=== PATIENT | female | born 1955 | race Caucasian/White ===

== ENCOUNTER → 2016-08-04 | Outpatient (CLI) | payer BC ==
[2016-08-04 09:25] LABS: Basophils # (A) 0.1 k/uL (0-0.2); Basophils % (A) 1 %; CH 29.7; CHCM 31.8; Eosinophils # (A) 0.1 k/uL (0-0.7); Eosinophils % (A) 1 %; HCT 44.3 % (34.0-46.0); HDW 2.22; HGB 14.5 gm/dL (11.4-16.0); Luc # (Auto) 0.13; Luc % (Auto) 2; Lymphocytes # (A) 2.3 k/uL (1.0-4.8); Lymphocytes % (A) 30 %; MCH 30.6 pg (25.0-35.0); MCHC 32.6 g/dL (31.0-37.0); MCV 93.8 fL (80.0-100.0); Mean Platelet Volume 7.3; Monocytes # (A) 0.3 k/uL (0-1.0); Monocytes % (A) 4 %; Neutrophils # (A) 4.7 k/uL (1.3-7.7); Neutrophils % (A) 62 %; RBC 4.73 m/uL (3.80-5.40); RDW 13.1 % (11.5-15.5); WBC 7.6 k/uL (3.8-10.6); WBC (Perox) 7.97
[2016-08-04 10:19] LABS: Erythrocyte Sedimentation Rate 8 mm/hr (0-20)
== END | disposition home or self-care (01) ==
LOC: LABWHC1 08:42
PROVIDERS: ATTEND Physical Medicine & Rehabilitation
DX: M50.123 Cervical disc disorder at C6-C7 level with radiculopathy (principal); M50.122 Cervical disc disorder at C5-C6 level with radiculopathy; M47.812 Spondylosis without myelopathy or radiculopathy, cervical region; M79.1 Myalgia; R20.2 Paresthesia of skin
CPT/HCPCS: 36415; 85025; 85652; 86140

== ENCOUNTER → 2016-09-07 | Outpatient (CLI) | payer BC ==
--- NOTE | 2016-09-07 08:58 | US ---
EXAMINATION TYPE: US abdomen complete DATE OF EXAM: 09/07/2016 8:40 AM COMPARISON: NONE CLINICAL HISTORY: R10.13 EPIGASTRIC PAIN. Midline pain EXAM MEASUREMENTS: Liver Length: 14.6 cm Gallbladder Wall: 0.2 cm CBD: 0.4 cm Spleen: 9.4 cm Right Kidney: 10.0 x 4.5 x 4.7 cm Left Kidney: 10.3 x 5.4 x 5.7 cm Pancreas: head not well seen due to overlying bowel gas Liver: wnl Gallbladder: multiple mobile stones Evidence for sonographic Caro's sign: neg CBD: wnl Spleen: wnl Right Kidney: wnl Left Kidney: wnl Upper IVC: seen Abd Aorta: seen Limited views of the pancreas are unremarkable. The liver is normal in size without biliary dilatation. There are multiple gallstones within the gallbladder. The gallbladder wall measures 2 mm. Distal comm on hepatic duct measures 4 mm. The spleen is normal in size. Both kidneys are normal. Visualized portions of aorta and IVC are normal. IMPRESSION: CHOLELITHIASIS.
== END | disposition home or self-care (01) ==
LOC: RADUSWWP 08:17
PROVIDERS: ATTEND Family Medicine
DX: K80.20 Calculus of gallbladder without cholecystitis without obstruction (principal)
CPT/HCPCS: 76700

== ENCOUNTER → 2016-11-02 | Outpatient (CLI) | payer BC ==
[2016-11-02 16:28] LABS: Bilirubin, Delta 0.1 mg/dL (0.0-0.2); Total Bilirubin 0.3 mg/dL (0.2-1.3); Total Protein 6.6 g/dL (6.3-8.2)
== END | disposition home or self-care (01) ==
LOC: LABWHC1 15:32
PROVIDERS: ATTEND Surgery
DX: K80.20 Calculus of gallbladder without cholecystitis without obstruction (principal)
CPT/HCPCS: 36415; 80076; 82150; 83690

== ENCOUNTER 2016-11-03 07:57 | Day surgery (SDC) | payer BC ==
[2016-10-28 14:44] VITALS: BMI 26.5
[~2016-11-03 07:57] MED LIST: CLINDAMYCIN 900 MG in DEXTROSE 5% IN WATER 50 ML IVPB ONE; DEXAMETHASONE SOD PHOSPHATE 10 MG/ML 1 ML VIAL IV ONE; HEPARIN SODIUM,PORCINE 5,000 UNIT/ML 1 ML VIAL SQ ONE; ONDANSETRON 4 MG/2 ML VIAL IVP ONE
[2016-11-03] MEDS ORDERED: LIDOCAINE 1% 20 ML VIAL (10MG/ML) FOR IV START INTRADERMA ONE (08:33)
[2016-11-03] MEDS: LACTATED RINGERS 1,000 ML IV SCH ×2 (08:33→11:36)
[2016-11-03 09:38] LABS: Basophils % (A) 0 %; CHCM 32.9; Eosinophils # (A) 0.1 k/uL (0-0.7); Eosinophils % (A) 2 %; HCT 43.4 % (34.0-46.0); HDW 2.22; HGB 13.9 gm/dL (11.4-16.0); Luc # (Auto) 0.08; Luc % (Auto) 2; Lymphocytes # (A) 2.1 k/uL (1.0-4.8); Lymphocytes % (A) 42 %; MCH 29.5 pg (25.0-35.0); MCHC 32.1 g/dL (31.0-37.0); MCV 91.8 fL (80.0-100.0); Mean Platelet Volume 7.2; Monocytes # (A) 0.3 k/uL (0-1.0); Monocytes % (A) 6 %; Neutrophils # (A) 2.4 k/uL (1.3-7.7); Neutrophils % (A) 48 %; RBC 4.73 m/uL (3.80-5.40); WBC (Perox) 4.83
[2016-11-03 09:56] LABS: Amylase 95 U/L (30-110)
[2016-11-03] MEDS ORDERED: HEPARIN SODIUM,PORCINE 5,000 UNIT/ML 1 ML VIAL SQ ONE (11:26)
--- NOTE | 2016-11-03 11:26 | P.PN ---
Progress Note - Text Patient is a 60-year-old white female who by history has had multiple recurrent episodes of midepigastric and right upper quadrant discomfort. Laboratory studies from yesterday revealed that she did have an elevated lipase, normal liver function studies. On today's repeat study shows that this number is 474 which is decreasing. Patient has minimal discomfort midepigastric by history on today's examination. I have discussed with her that she most likely had an episode of gallstone pancreatitis which is largely resolved at this point and that we should be able to proceed with operative intervention. She understands the risks of the procedure including bleeding and infection reaction to the anesthetic, possible common bile duct injury, possible conversion to an open procedure and wishes to proceed.
[2016-11-03] MEDS ORDERED: LIDOCAINE 1% INJ 10MG/ML (20 ML MDV) ONE (11:39)
[2016-11-03] MEDS ORDERED: ROCURONIUM BROMIDE 10 MG/ML 10 ML VIAL IV ONE (11:39)
[2016-11-03] MEDS ORDERED: NEOSTIGMINE 1 MG/ML 10 ML VIAL ONE (11:39)
[2016-11-03] MEDS ORDERED: SUCCINYLCHOLINE CHLORIDE 100 MG/5 ML SYR IV ONE (11:39)
[2016-11-03] MEDS ORDERED: GLYCOPYRROLATE 0.2 MG/ML 2 ML VIAL ONE (11:39)
[2016-11-03] MEDS ORDERED: ePHEDrine 50 MG/ML 1 ML AMP ONE (11:39)
[2016-11-03] MEDS ORDERED: fentaNYL (PF) 50 MCG/ML 2 ML AMP ONE (11:39)
[2016-11-03] MEDS ORDERED: MIDAZOLAM 2 MG/2 ML VIAL ONE (11:39)
[2016-11-03] MEDS ORDERED: PROPOFOL 10 MG/ML 20 ML VIAL IV ONE (11:39)
[2016-11-03] MEDS ORDERED: LIDOCAINE 1% INJ 10MG/ML (20 ML MDV) SQ ONE ×2 (12:15)
--- NOTE | 2016-11-03 13:10 | P.OP ---
Date of Procedure: 11/03/16 Preoperative Diagnosis: Symptomatic cholelithiasis/prior pancreatitis Postoperative Diagnosis: Same Procedure(s) Performed: Laparoscopic cholecystectomy Implants: Anesthesia: SAE Surgeon: Didi Mcdonnell Supervisor [employer] Testing #1: Rosaura Banks Estimated Blood Loss (ml): 5 IV fluids (ml): 800 Pathology: other (gallbladder) Condition: stable Disposition: PACU Indications for Procedure: Symptomatic cholelithiasis with bouts of pancreatitis Operative Findings: Distended gallbladder/cholelithiasis Description of Procedure: Patient is a 60-year-old white female is had multiple bouts of midepigastric and right upper quadrant abdominal discomfort. Most recently she was noted to have an elevated lipase which has decreased over the past 24 hours. She is going to undergo laparoscopic possible open cholecystectomy. She understands the risks and benefits of the procedure and wishes to proceed. Patient was taken to the operating room and following induction of general anesthesia the abdomen was prepped and draped in a sterile fashion. An infraumbilical incision was made and carried down to the fascia the anterior abdominal wall. The peritoneal cavity was entered under direct visualization. 2 stay sutures were placed. A balloon trocar was placed under direct visualization. The abdomen was insufflated to 15 mmHg pressure. Two number 5 ports were placed in the right side of the abdomen through which the gallbladder was retracted and a #10 port was placed in the left upper quadrant. Through the # 10 port dissection was performed. The cystic duct and cystic artery were identified. These were stapled and divided. The gallbladder was retracted and removed from the surface of the liver bed being careful to maintain hemostasis using the electrocautery device. Following this the gallbladder was placed in a Pleatman sac and brought up through the #10 port site. At this time the abdomen was well irrigated there was no evidence of any bleeding. The #10 port site was closed using a Terrence Rodas device. No evidence of bleeding was noted at this site. The 2 #5 ports were removed under direct visualization no evidence of bleeding was noted. Following this after the abdomen had been well irrigated the balloon trocar was removed. The fascia was closed using 0 Vicryl suture. This was followed by closure of the skin with a 4 Monocryl. Steri-Strips applied. The patient tolerated the procedure in stable condition.
--- NOTE | 2016-11-03 13:13 | P.DS ---
Providers Attending physician: Didi Mcdonnell Primary care physician: Gregory Moreno Plan - Discharge Summary New Discharge Prescriptions: New HYDROcodone/APAP 5-325MG [[place] 5] 1 - 2 each PO Q4H PRN #20 tab PRN Reason: Pain No Action Multivitamins, Thera [Multivitamin (formulary)] 1 tab PO DAILY Lysine [l-Lysine] 500 mg PO DAILY Atenolol [Tenormin] 25 mg PO DAILY Discharge Medication List Atenolol [Tenormin] 25 mg PO DAILY 10/28/16 [History] Lysine [l-Lysine] 500 mg PO DAILY 10/28/16 [History] Multivitamins, Thera [Multivitamin (formulary)] 1 tab PO DAILY 10/28/16 [History ] HYDROcodone/APAP 5-325MG [Brent[place] 5] 1 - 2 each PO Q4H PRN #20 tab 11/03/16 [Rx] Follow up Appointment(s)/Referral(s): Didi Mcdonnell MD [STAFF PHYSICIAN] - 1 Week Activity/Diet/Wound Care/Special Instructions: Do not drive until seen by Dr. Moreno Patient may shower in 48 hours. No heavy lifting nothing over 10 pounds Discharge Disposition: HOME SELF-CARE
[2016-11-03 13:47] VITALS: TEMP 97.8
[2016-11-03 13:48] VITALS: RESP 16
[2016-11-03] MEDS: HYDROmorphone 1 MG/ML 1 ML SYRINGE IVP PRN ×4 (14:14→14:36)
[2016-11-03] MEDS ORDERED: LACTATED RINGERS 1,000 ML IV ONE (14:45)
[2016-11-03] MEDS ORDERED: KETOROLAC 30 MG/ML 1 ML VIAL IVP ONE (15:18)
[2016-11-03 18:20] VITALS: BP 135/75
[2016-11-03 18:21] VITALS: PULSE 60
== END 2016-11-03 18:08 | disposition home or self-care (01) ==
LOC: OR 07:57
PROVIDERS: ATTEND Surgery
DX: K80.10 Calculus of gallbladder with chronic cholecystitis without obstruction (principal); M19.90 Unspecified osteoarthritis, unspecified site; Z88.0 Allergy status to penicillin; Z79.899 Other long term (current) drug therapy; Z86.79 Personal history of other diseases of the circulatory system; Z90.710 Acquired absence of both cervix and uterus
CPT/HCPCS: 47562; 88304; 82150; 83690; 85025; J2250; J1644; J1100; J2710; J2405; J2001; J3010; J1885; J1170; J0330; J2704

== ENCOUNTER → 2017-01-21 | Outpatient (CLI) | payer BC ==
--- NOTE | 2017-01-25 11:34 | MM ---
Reason for exam: screening (asymptomatic). Last mammogram was performed 1 year ago. History: Patient is postmenopausal. Took estrogen beginning at age 53. Took progesterone beginning at age 53. Physical Findings: A clinical breast exam by your physician is recommended on an annual basis and results should be correlated with mammographic findings. MG 3D Screening Mammo W/Cad Bilateral CC and MLO view(s) were taken. Prior study comparison: January 13, 2016, bilateral MG 3d screening mammo w/cad. January 09, 2015, bilateral MG screening mammo w CAD. The breast tissue is heterogeneously dense. This may lower the sensitivity of mammography. Finding: There are typically benign vascular calcifications in both breasts. There is no discrete abnormality. ASSESSMENT: Benign, BI-RAD 2 RECOMMENDATION: Routine screening mammogram of both breasts in 1 year.
== END | disposition home or self-care (01) ==
LOC: RADMAMWWP 07:20
PROVIDERS: ATTEND Family Medicine
DX: Z12.31 Encounter for screening mammogram for malignant neoplasm of breast (principal)
CPT/HCPCS: 77063; G0202

== ENCOUNTER 2017-03-05 08:50 | Inpatient (IN) | payer BC ==
[2017-03-05] MEDS ORDERED: NALOXONE 0.4 MG/ML 1 ML VIAL IV PRN (11:09)
[2017-03-05 12:12] LABS: Basophils # (A) 0.1 k/uL (0-0.2); Basophils % (A) 1 %; CH 29.7; CHCM 32.1; Eosinophils # (A) 0.1 k/uL (0-0.7); Eosinophils % (A) 1 %; HDW 2.29; HGB 14.5 gm/dL (11.4-16.0); Luc # (Auto) 0.17; Luc % (Auto) 2; Lymphocytes # (A) 3.4 k/uL (1.0-4.8); Lymphocytes % (A) 44 %; MCH 29.9 pg (25.0-35.0); MCHC 32.2 g/dL (31.0-37.0); MCV 92.9 fL (80.0-100.0); Mean Platelet Volume 6.9; Monocytes # (A) 0.4 k/uL (0-1.0); Monocytes % (A) 6 %; Neutrophils # (A) 3.5 k/uL (1.3-7.7); Neutrophils % (A) 46 %; RBC 4.85 m/uL (3.80-5.40); RDW 12.7 % (11.5-15.5); WBC 7.7 k/uL (3.8-10.6); WBC (Perox) 7.46
[2017-03-05 12:30] LABS: ALT 57 U/L (9-52); AST 27 U/L (14-36); Alkaline Phosphatase 131 U/L (38-126); Anion Gap 12 mmol/L; Blood Urea Nitrogen 14 mg/dL (7-17); Calcium 9.8 mg/dL (8.4-10.2); Carbon Dioxide 23 mmol/L (22-30); Chloride 108 mmol/L (98-107); Glucose 73 mg/dL (74-99); Non-African American GFR(MDRD) >60 (>60 ml/min/1.73 sqM); Potassium 4.2 mmol/L (3.5-5.1); Sodium 143 mmol/L (137-145); Total Bilirubin 0.2 mg/dL (0.2-1.3); Total Protein 7.3 g/dL (6.3-8.2)
[2017-03-05 12:56] LABS: Amylase 116 U/L (30-110)
[2017-03-05] MEDS: PANTOPRAZOLE 40 MG/10 ML VIAL IVP SCH ×2 (13:05→20:12)
[2017-03-05 14:14] VITALS: BMI 25.6
--- NOTE | 2017-03-05 14:42 | US ---
EXAMINATION TYPE: US gallbladder DATE OF EXAM: 03/05/2017 COMPARISON: US 2017 CLINICAL HISTORY: elevated liver enzymes. Elevated liver enzymes, history of cholecystectomy EXAM MEASUREMENTS: Liver Length: 12.8 cm Gallbladder Wall: surgically absent CBD: 0.8 cm Right Kidney: 9.1 x 4.6 x 4.4 cm Pancreas: visualized portions wnl, head and tail obscured by overlying midline bowel gas Liver: wnl Gallbladder: surgically absent Evidence for sonographic Caro's sign: no CBD: visualized portions wnl, obscured at panc head by overlying midline bowel gas Right Kidney: wnl and there is normal cortical medullary differentiation, no hydronephrosis or patho logic calcification. There is no ascites. IMPRESSION: Status post cholecystectomy. Limited exam. Dilated common bile duct may be due to postcho lecystectomy change.
--- NOTE | 2017-03-05 15:43 | P.HPIM ---
History of Present Illness 61-year-old female was admitted as a direct admit as per request from Dr. Moreno' s office because of her on and off abdominal pain in the epigastric area not related to food mostly sharp in nature mostly like a burning sensation. Patient had cholecystectomy in the past. Patient also had minimally elevated liver enzymes as today because of which there was a concern about choledocholithiasis.ultrasound that did not show any significant elevation of common bile duct it was minimally dilated at 0.8 cm there is a concern that lipase is elevated but not high enough to attribute as pancreatitis patient the pain is mostly localized in the epigastric area patient will be started on Prilosec and either was requested to consult gastroenterology because of which I 'm counseling gastroenterology. I believe patient has gastritis will put him put her on Protonix and if she is doing well patient probably will be discharged tomorrow. Patient denied any fever, chills, patient is presently nauseous did not vomit. Patient denied any abdominal pain presently. Does have minimally elevated amylase and lipase. Liver enzymes have come down. Review of Systems REVIEW OF SYSTEMS: CONSTITUTIONAL: No fever, no malaise, no fatigue. HEENT: No recent visual problems or hearing problems. Denied any sore throat. CARDIOVASCULAR: No chest pain, orthopnea, PND, no palpitations, no syncope. PULMONARY: No shortness of breath, no cough, no hemoptysis. GASTROINTESTINAL: No diarrhea. NEUROLOGICAL: No headaches, no weakness, no numbness. HEMATOLOGICAL: Denies any bleeding or petechiae. GENITOURINARY: Denies any burning micturition, frequency, or urgency. MUSCULOSKELETAL/RHEUMATOLOGICAL: Denies any joint pain, swelling, or any muscle pain. ENDOCRINE: Denies any polyuria or polydipsia. The rest of the 14-point review of systems is negative. Past Medical History Past Medical History: Osteoarthritis (OA) Additional Past Medical History / Comment(s): Gallstones with lap landy, nephrolithiasis-passed stone on her own, arthritis multiple joints, mitral valve regurgitaion. History of Any Multi-Drug Resistant Organisms: None Reported Past Surgical History: Section, Cholecystectomy, Hysterectomy, Tonsillectomy Additional Past Surgical History / Comment(s): 11/03/16 lap landy, 1980 hysterectomy d/t dysfunctional bleeding, 2008 ovarian cysts bilaterally- bilateral oophorectomy and lysis of adhesions, multiple bening skin biopsies, D& C, colonoscopy-09/2016 and was normal Past Anesthesia/Blood Transfusion Reactions: Postoperative Nausea & Vomiting ( PONV) Smoking Status: Never smoker - Past Family History Mother Family Medical History: Dementia, Diabetes Mellitus Additional Family Medical History / Comment(s): Mother is 83 yrs old. Father Family Medical History: Cancer, Hypertension Additional Family Medical History / Comment(s): Father had mitral valve replacement. He of malignant melanoma at the age of 68yrs. Medications and Allergies Home Medications Medication Instructions Recorded Confirmed Type Atenolol [Tenormin] 25 mg PO DAILY 10/28/16 03/05/17 History Multivitamins, Thera [Multivitamin 1 tab PO DAILY 10/28/16 03/05/17 History (formulary)] Allergies Allergy/AdvReac Type Severity Reaction Status Date / Time Penicillins Allergy Rash/Hives/ Verified 03/05/17 10:31 swelling Physical Exam Vitals: Vital Signs Temp Pulse Resp BP Pulse Ox 03/05/17 15:09 97.6 F 73 15 125/62 99 Intake and Output 03/05/17 03/05/17 03/05/17 06:59 14:59 22:59 Intake Total 200 Balance 200 Intake: IV 200 0.9 200 Other: Voiding Method Toilet # Voids 3 Weight 63.6 kg Patient Weight 03/06/17 06:59 Weight 63.6 kg PHYSICAL EXAMINATION: GENERAL: The patient is alert and oriented x3, not in any acute distress. Well developed, well nourished. HEENT: Pupils are round and equally reacting to light. EOMI. No scleral icterus. No conjunctival pallor. Normocephalic, atraumatic. No pharyngeal erythema. No thyromegaly. CARDIOVASCULAR: S1 and S2 present. No murmurs, rubs, or gallops. PULMONARY: Chest is clear to auscultation, no wheezing or crackles. ABDOMEN: Soft, nontender, nondistended, normoactive bowel sounds. No palpable organomegaly. MUSCULOSKELETAL: No joint swelling or deformity. EXTREMITIES: No cyanosis, clubbing, or pedal edema. NEUROLOGICAL: Gross neurological examination did not reveal any focal deficits. SKIN: No rashes. Results CBC & Chem 7: 03/05/17 11:43 11/17/17 11:43 Labs: Abnormal Lab Results - Last 24 Hours (Table) 03/05/17 03/05/17 Range/Units 11:43 11:43 Chloride 108 H (98-107) mmol/L Glucose 73 L (74-99) mg/dL ALT 57 H (9-52) U/L Alkaline Phosphatase 131 H (38-126) U/L Amylase 116 H (30-110) U/L Lipase 565 H (23-300) U/L Thrombosis Risk Factor Assmnt - Choose All That Apply Any of the Below Risk Factors Present?: Yes Other Risk Factors: Yes Each Risk Factor Represents 2 Points: Age 61-74 years Other congenital or acquired thrombophilia - If yes, enter type in comment: No Thrombosis Risk Factor Assessment Total Risk Factor Score: 2 Thrombosis Risk Factor Assessment Level: Low Risk Assessment and Plan Plan: #1 epigastric abdominal pain: Probably due to gastritis versus patient is low that patient patient has been hepatitis lipase is not had of to say pancreatitis. Patient was started on clear liquid diet patient has minimal epigastric abdominal pain yesterday which completely resolved at this point of time. #2 minimal elevation of liver enzymes him a nonspecific elevation no further intervention is the city hepatitis panel as outpatient was negative. OF THE ABDOMEN MENTIONED ABOVE. #3 OSTEOARTHRITIS PER THE REQUEST OF THE PRIMARY CARE PHYSICIAN AND THE PATIENT GASTRONEUROLOGY WAS WILL BE CONSULTED BUT I DO NOT BELIEVE ANY FURTHER INTERVENTION IS NECESSARY AT THIS POINT OF TIME PATIENT'S IMPROVED WITH THE PROTONIX PATIENT WILL BE DISCHARGED ON PRILOSEC FOR 14 DAYS TO A MONTH.
[2017-03-05] MEDS: SODIUM CHLORIDE 0.9% 1,000 ML IV SCH (17:26)
[2017-03-06 08:00] LABS: ALT 51 U/L (9-52); AST 24 U/L (14-36); Alkaline Phosphatase 115 U/L (38-126); Anion Gap 5 mmol/L; Blood Urea Nitrogen 11 mg/dL (7-17); Calcium 8.8 mg/dL (8.4-10.2); Carbon Dioxide 24 mmol/L (22-30); Chloride 108 mmol/L (98-107); Glucose 90 mg/dL (74-99); Non-African American GFR(MDRD) >60 (>60 ml/min/1.73 sqM); Potassium 4.3 mmol/L (3.5-5.1); Sodium 137 mmol/L (137-145); Total Bilirubin 0.4 mg/dL (0.2-1.3); Total Protein 5.7 g/dL (6.3-8.2)
[2017-03-06 08:29] VITALS: BP 111/44; PULSE 72; RESP 18; TEMP 97.4
[2017-03-06] MEDS ORDERED: ATENOLOL 25 MG TAB PO SCH (09:00)
[2017-03-06] MEDS ORDERED: MULTIVITAMINS, THERA 1 EACH TAB PO SCH (09:00)
[2017-03-06] MEDS: PANTOPRAZOLE 40 MG/10 ML VIAL IVP SCH (09:26)
[2017-03-06] MEDS: SODIUM CHLORIDE 0.9% 1,000 ML IV SCH (09:47)
== END 2017-03-06 10:09 | disposition home or self-care (01) | DRG 392 ==
LOC: 5MS5E 09:00
PROVIDERS: ADMIT Internal Medicine; ATTEND Internal Medicine
DX: K29.70 Gastritis, unspecified, without bleeding (principal); I34.0 Nonrheumatic mitral (valve) insufficiency; M19.90 Unspecified osteoarthritis, unspecified site; Z87.442 Personal history of urinary calculi; Z80.8 Family history of malignant neoplasm of other organs or systems; Z79.899 Other long term (current) drug therapy; Z82.49 Family history of ischemic heart disease and other diseases of the circulatory system; Z83.3 Family history of diabetes mellitus; Z90.710 Acquired absence of both cervix and uterus; Z88.0 Allergy status to penicillin; Z81.8 Family history of other mental and behavioral disorders; Z90.49 Acquired absence of other specified parts of digestive tract
CPT/HCPCS: 76705; 80053; 82150; 83690; 85025

== ENCOUNTER → 2017-03-09 | Outpatient (CLI) | payer BC ==
--- NOTE | 2017-03-10 11:32 | ECHOS ---
STRESS ECHOCARDIOGRAM DATE OF SERVICE: 03/09/2017 MEDICATIONS:: Atenolol. BASELINE HEART RATE: 82 BASELINE BLOOD PRESSURE: 120/45 MAXIMUM HEART RATE: 158 MAXIMUM BLOOD PRESSURE: 174/81 85% MPHR: 135 100% MPHR: 159 METS: 8.5 MAXIMUM STAGE REACHED: III TOTAL EXERCISE TIME: 7 minutes INDICATIONS: Chest pain and palpitations. CLINICAL INFORMATION: Patient was exercised for a total area of 7 minutes. A peak heart rate of 158 was achieved. Maximum blood pressure of 174/81 mmHg was noted. The resting EKG shows normal sinus rhythm with normal SD interval and QRS duration and normal ST-T waves. No ST-segment depression suggestive of ischemia was noted. No dysrhythmias are noted. FINAL IMPRESSION: This exercise stress test is not suggestive of ischemia. Patient's exercise tolerance is average. EKG portion of the stress test is not suggestive of ischemia. MMRONNI / ISAACN: [id number] /
== END | disposition home or self-care (01) ==
LOC: RADNMMAIN 08:57
PROVIDERS: ATTEND Family Medicine
DX: R00.2 Palpitations (principal); R07.9 Chest pain, unspecified; R94.5 Abnormal results of liver function studies; Z88.0 Allergy status to penicillin
CPT/HCPCS: 93017; 93225; 93226; 93350

== ENCOUNTER → 2017-04-16 | Outpatient (CLI) | payer BC ==
--- NOTE | 2017-04-16 14:30 | MR ---
MRCP HISTORY: Epigastric pain Multiplanar multisequence imaging through the biliary system, three-dimensional reconstructions perfo rmed. Correlation to ultrasound gallbladder 03/05/2017 Gallbladder is absent. There is dilation of the common bile duct approximately 9 mm, some prominence of the proper left and right hepatic ducts, common hepatic duct. There is some motion on the exam. No evident filling defect within the biliary system. Slight caliber change is noted at the level of the change in course of the common bile duct which is indeterminate. Cystic duct remnant noted incidenta lly. Pancreatic duct shows normal caliber. Suspect some signal drop on out of phase imaging within the liver may be indicative of some hepatic s teatosis. The adrenal gland, kidneys, spleen, gallbladder are unremarkable. There is no ascites or ev ident pleural effusion. Heart size is normal as visualized. IMPRESSION: Postcholecystectomy. Dilated biliary system as noted on ultrasound, there is a caliber ch shiloh noted without definite mass, possible postoperative appearance, consider biliary stasis. CT scan of the abdomen with contrast may be of benefit. Additional findings above.
== END | disposition home or self-care (01) ==
LOC: RADMRIMAIN 09:32
PROVIDERS: ATTEND Internal Medicine Gastroenterology
DX: R10.13 Epigastric pain (principal); Z90.49 Acquired absence of other specified parts of digestive tract
CPT/HCPCS: 74181

== ENCOUNTER → 2017-09-20 | Outpatient (CLI) | payer BC ==
--- NOTE | 2017-09-21 08:13 | US ---
EXAMINATION TYPE: US renals and bladder DATE OF EXAM: 09/20/2017 COMPARISON: US CLINICAL HISTORY: N39.0 Urinary tract infection. EXAM MEASUREMENTS: Right Kidney: 9.4 x 4.5 x 5.3 cm Left Kidney: 10.7 x 5.5 x 5.4 cm Post Void Residual Volume: 17.4 mL Right Kidney: No hydronephrosis or masses seen Left Kidney: No hydronephrosis or masses seen Bladder: wnl Bilateral Jets seen: Yes Normal Post Void Residual: yes There is no evidence for hydronephrosis at this point in time. No nephrolithiasis is seen. No sohan s are identified. The urinary bladder is anechoic. Bilateral ureteral jets are seen. IMPRESSION: No acute process.
== END | disposition home or self-care (01) ==
LOC: RADUSMAIN 17:44
PROVIDERS: ATTEND Family Medicine
DX: N39.0 Urinary tract infection, site not specified (principal); Z88.0 Allergy status to penicillin
CPT/HCPCS: 76770

== ENCOUNTER → 2018-01-26 | Outpatient (CLI) | payer BC ==
--- NOTE | 2018-01-26 10:01 | MM ---
Reason for exam: screening (asymptomatic). Last mammogram was performed 1 year ago. History: Patient is postmenopausal. Took estrogen beginning at age 53. Took progesterone beginning at age 53. Physical Findings: A clinical breast exam by your physician is recommended on an annual basis and results should be correlated with mammographic findings. MG 3D Screening Mammo W/Cad Bilateral CC and MLO view(s) were taken. Prior study comparison: January 21, 2017, bilateral MG 3d screening mammo w/cad. January 13, 2016, bilateral MG 3d screening mammo w/cad. The breast tissue is heterogeneously dense. This may lower the sensitivity of mammography. No suspicious abnormality. No significant changes when compared with prior studies. ASSESSMENT: Negative, BI-RAD 1 RECOMMENDATION: Routine screening mammogram of both breasts in 1 year.
== END | disposition home or self-care (01) ==
LOC: RADMAMWWP 07:22
PROVIDERS: ATTEND Family Medicine
DX: Z12.31 Encounter for screening mammogram for malignant neoplasm of breast (principal)
CPT/HCPCS: 77063; 77067

== ENCOUNTER → 2019-02-24 | Outpatient (CLI) | payer BC ==
--- NOTE | 2019-02-24 10:02 | BD ---
EXAMINATION TYPE: Axial Bone Density DATE OF EXAM: 02/24/2019 COMPARISON: 2016 CLINICAL HISTORY: Z 78.0 Height: 5 FT 2 IN Weight: 144 FRAX RISK QUESTIONS: RISK FACTORS HISTORY OF: Family History of Osteoporosis: YES Postmenopausal woman: PART BRIANNA AGE 25 OVARIES REMOVED AGE 53 Take estrogen and/or progesterone medications: TOOK HRT FROM [age] NO LONGER TAKES MEDICATIONS: Additional Medications: ATTENOLOL, VALTREX NEEDED Additional History: EXAM MEASUREMENTS: Bone mineral densitometry was performed using the Pet[employer]DE System. Bone mineral density as measured about the Lumbar spine is: ----- L1-L4(G/cm2): 1.136 T Score Values are as follows: ----- L2: -0.6 ----- L3: -0.5 ----- L4: -0.2 ----- L1-L4: -0.4 Bone mineral density has: DECREASED -8.6 % since study of: 2016 Bone mineral density about the R hip (g/cm2): 0.752 Bone mineral density about the L hip (g/cm2): 0.752 T Score values are as follows: -----R Neck: -2.1 -----L Neck: -2.1 -----R Total: -1.4 -----L Total: -1.5 Bone mineral density has: DECREASED -8.6 % since study of: 2016 IMPRESSION: Osteopenia (T Score between -2.5 and -1). There is slightly increased risk of fracture and the patient may be considered for treatment. Re-Screen 2-5 years. NOTE: T-SCORE=SD OF THE YOUNG ADULT MEAN.
--- NOTE | 2019-02-27 10:42 | MM ---
Reason for exam: screening (asymptomatic). Last mammogram was performed 1 year and 1 month ago. History: Patient is postmenopausal. Took estrogen beginning at age 53. Took progesterone beginning at age 53. Physical Findings: A clinical breast exam by your physician is recommended on an annual basis and results should be correlated with mammographic findings. MG 3D Screening Mammo W/Cad Bilateral CC and MLO view(s) were taken. Prior study comparison: January 26, 2018, bilateral MG 3d screening mammo w/cad. January 21, 2017, bilateral MG 3d screening mammo w/cad. The breast tissue is heterogeneously dense. This may lower the sensitivity of mammography. No significant changes when compared with prior studies. ASSESSMENT: Negative, BI-RAD 1 RECOMMENDATION: Routine screening mammogram of both breasts in 1 year.
== END | disposition home or self-care (01) ==
LOC: RADMAMWWP 06:56
PROVIDERS: ATTEND Family Medicine
DX: Z12.31 Encounter for screening mammogram for malignant neoplasm of breast (principal); M85.80 Other specified disorders of bone density and structure, unspecified site; Z78.0 Asymptomatic menopausal state
CPT/HCPCS: 77063; 77067; 77080

== ENCOUNTER → 2019-03-13 | Outpatient (CLI) | payer BC ==
--- NOTE | 2019-03-14 07:48 | XR ---
Bilateral hips HISTORY: Osteoarthritis, chronic pain 2 views of each hip submitted on a total 4 images Bone mineralization, joint spaces and alignment are maintained. Surgical clip overlying the left iliu m. Probable phlebolith in the right hemipelvis. IMPRESSION: Normal hips. Hip MRI may be of increased sensitivity.
--- NOTE | 2019-03-14 07:50 | XR ---
Bilateral feet HISTORY: Osteoarthritis 3 views of each foot submitted on a total of 6 images Bone mineralization, joint spaces and alignment are maintained with exception of mild degenerative ch anges at the first metatarsophalangeal joint bilaterally. Enthesophyte present at the insertion of th e Achilles tendons. No fracture or dislocation. IMPRESSION: Osteoarthritis first digits and additional findings above.
--- NOTE | 2019-03-14 07:52 | XR ---
Bilateral hands HISTORY: Chronic pain, osteoarthritis 3 views of each hand submitted on a total 6 images There is some spurring, subchondral sclerosis present at the carpometacarpal joints of the first digi ts, metacarpophalangeal joints of the first digits. No fracture or dislocation. Bone mineralization a nd alignment are maintained. IMPRESSION: Osteoarthritis.
--- NOTE | 2019-03-14 07:53 | XR ---
Lumbosacral spine HISTORY: Chronic pain, osteoarthritis 5 views of lumbosacral spine Surgical clips are present in the right upper quadrant. Lumbar vertebral bodies show no spondylolysis or spondylolisthesis. Sclerosis present in the posterior elements of the lumbar spine is compatible with facet arthropathy. Loss of disc height present at L5-S1 is noted. Mild decreased bone mineraliza tion noted. IMPRESSION: Degenerative disc disease, facet arthropathy, osteopenia.
== END | disposition home or self-care (01) ==
LOC: RADXRMAIN 16:54
PROVIDERS: ATTEND Family Medicine
DX: M19.072 Primary osteoarthritis, left ankle and foot (principal); M19.071 Primary osteoarthritis, right ankle and foot; M19.042 Primary osteoarthritis, left hand; M51.36 Other intervertebral disc degeneration, lumbar region; M46.96 Unspecified inflammatory spondylopathy, lumbar region; M85.88 Other specified disorders of bone density and structure, other site
CPT/HCPCS: 72110; 73521

== ENCOUNTER → 2020-06-11 | Outpatient (CLI) | payer BC ==
--- NOTE | 2020-06-12 10:04 | MM ---
Reason for exam: screening (asymptomatic). Last mammogram was performed 1 year and 3 months ago. History: Patient is postmenopausal. Took estrogen beginning at age 53. Took progesterone beginning at age 53. Physical Findings: A clinical breast exam by your physician is recommended on an annual basis and results should be correlated with mammographic findings. MG 3D Screening Mammo W/Cad Bilateral CC and MLO view(s) were taken. Prior study comparison: February 24, 2019, bilateral MG 3d screening mammo w/cad. January 26, 2018, bilateral MG 3d screening mammo w/cad. The breast tissue is heterogeneously dense. This may lower the sensitivity of mammography. Benign appearing bilateral calcifications. No significant changes when compared with prior studies. ASSESSMENT: Benign, BI-RAD 2 RECOMMENDATION: Routine screening mammogram of both breasts in 1 year.
== END | disposition home or self-care (01) ==
LOC: RADMAMWWP 07:15
PROVIDERS: ATTEND Nurse Practitioner Family
DX: Z12.31 Encounter for screening mammogram for malignant neoplasm of breast (principal)
CPT/HCPCS: 77063; 77067

== ENCOUNTER 2020-12-12 09:25 | Day surgery (SDC) | payer BC ==
[2020-12-11 08:13] VITALS: BMI 27.0
[2020-12-12 09:56] VITALS: TEMP 97.8
[2020-12-12] MEDS ORDERED: LACTATED RINGERS 1,000 ML IV ONE (09:56)
[2020-12-12] MEDS ORDERED: PROPOFOL 10 MG/ML 20 ML VIAL IV ONE (10:43)
[2020-12-12] MEDS ORDERED: LIDOCAINE 1% INJ 10MG/ML (20 ML MDV) ONE (10:43)
--- NOTE | 2020-12-12 10:55 | P.PCN ---
Date of Procedure: 12/12/20 Procedure(s) Performed: BRIEF HISTORY: Patient is a 64-year-old, pleasant, at female scheduled for an upper endoscopy as a part of evaluation of GERD for the last 2 years duration. She was on Pepcid 20 mg daily before and recently was changed to Protonix 40 mg daily and feeling better. He scheduled for an upper endoscopy to rule out complicated reflux. PROCEDURE PERFORMED: Esophagogastroduodenoscopy with biopsy. PREOPERATIVE DIAGNOSIS: Long-standing history of GERD. IV sedation per anesthesia. PROCEDURE: After informed consent was obtained, the patient was brought into the endoscopy unit. IV sedation was administered by Anesthesia under continuous monitoring. Initially the Olympus GIF-140 video endoscope was inserted into the mouth. Esophagus intubated without any difficulty. It was gradually advanced into the stomach and duodenum and carefully examined. The bulb and the second part of the duodenum appeared normal. The scope at this time was withdrawn to the stomach, adequately insufflated with air, and upon careful examination, mucosa of the antrum, mild gastritis and biopsies were done from this area. The body, cardia and the fundus appeared normal. The scope was then withdrawn into the esophagus. The GE junction was located at 39 cm from the incisors. The esophagus appeared normal. There were no erosions or ulcerations seen and the patient tolerated the procedure well. IMPRESSION: 1. Mild antral gastritis. 2. No evidence of esophagitis or Hernandez's. RECOMMENDATIONS: The findings of this examination were discussed with the patient as well as his family. She was advised to follow with the biopsy results. She will continue with Protonix 40 mg twice daily and follow antireflux measures..
[2020-12-12 11:13] VITALS: BP 143/84; PULSE 62; RESP 16
== END 2020-12-12 11:42 | disposition home or self-care (01) ==
LOC: ORWHC2ENDO 09:25
PROVIDERS: ATTEND Internal Medicine Gastroenterology
DX: K29.50 Unspecified chronic gastritis without bleeding (principal); K21.9 Gastro-esophageal reflux disease without esophagitis; I34.1 Nonrheumatic mitral (valve) prolapse; I10 Essential (primary) hypertension; E78.5 Hyperlipidemia, unspecified; Z88.0 Allergy status to penicillin
CPT/HCPCS: 43239; 88305; J2001; J2704

== ENCOUNTER 2021-06-23 23:45 | Emergency (ER) | payer BC ==
[2021-06-23 23:52] VITALS: TEMP 97.9
[2021-06-23] MEDS ORDERED: SODIUM CHLORIDE 0.9% 1,000 ML IV STA (23:58)
[2021-06-23] MEDS ORDERED: MORPHINE SULFATE 4 MG/ML SYRINGE IV STA (23:58)
[2021-06-23] MEDS ORDERED: ONDANSETRON 4 MG/2 ML VIAL IVP STA (23:58)
--- NOTE | 2021-06-23 23:59 | ED ---
Abdominal Pain HPI - General Chief Complaint: Abdominal Pain Stated Complaint: Nausea, vomiting Time Seen by Provider: 06/23/21 23:52 Source: EMS, RN notes reviewed, old records reviewed Mode of arrival: EMS Limitations: no limitations - History of Present Illness Initial Comments: This is a 65-year-old female to the emergency department today with chest pain shows of breath with abdominal pain as well as nausea vomiting and diarrhea. Patient presents by EMS for evaluation tonight. Patient's history of high cholesterol with history of gallbladder as well as uterus removal. Patient is without fever. No family members with similar complaints, symptoms started and progressively worsened throughout the day today. MD Complaint: abdominal pain, other (Chest pain) -: hour(s) Location: diffuse, epigastric Radiation: epigastric Migration to: no migration Severity: moderate Severity scale (1-10): 4 Quality: cramping, aching Consistency: intermittent Improves With: nothing Worsens With: nothing Context: sick contacts (Patient actually states has been having nausea vomiting and diarrhea) Associated Symptoms: nausea Treatments Prior to Arrival: other (none) - Related Data Home Medications Medication Instructions Recorded Confirmed Multivitamins, Thera [Multivitamin 1 tab PO DAILY 10/28/16 12/11/20 (formulary)] atenoloL [Tenormin] 25 mg PO QAM 10/28/16 12/11/20 Atorvastatin [Lipitor] 20 mg PO DAILY 12/11/20 12/11/20 Pantoprazole Sodium [Protonix] 40 mg PO QAM 12/11/20 12/11/20 Allergies Allergy/AdvReac Type Severity Reaction Status Date / Time Penicillins Allergy Rash/Hives/ Verified 12/11/20 08:03 swelling Review of Systems ROS Statement: Those systems with pertinent positive or pertinent negative responses have been documented in the HPI. ROS Other: All systems not noted in ROS Statement are negative. Past Medical History Past Medical History: Hyperlipidemia, Osteoarthritis (OA) Additional Past Medical History / Comment(s): frequent belching,hx Gallstones with lap landy, nephrolithiasis-passed stone on her own, arthritis multiple joints, mitral valve regurgitaion. History of Any Multi-Drug Resistant Organisms: None Reported Past Surgical History: Section, Cholecystectomy, Hysterectomy, Tonsillectomy Additional Past Surgical History / Comment(s): 11/03/16 lap landy, 1981 hysterectomy d/t dysfunctional bleeding, 2008 ovarian cysts bilaterally- bilateral oophorectomy and lysis of adhesions, multiple bening skin biopsies, D&C, colonoscopy-09/2016 and was normal Past Anesthesia/Blood Transfusion Reactions: Postoperative Nausea & Vomiting (PONV) Past Psychological History: No Psychological Hx Reported Smoking Status: Never smoker - Past Family History Mother Family Medical History: Dementia, Diabetes Mellitus Additional Family Medical History / Comment(s): at age 86 Father Family Medical History: Cancer, Hypertension Additional Family Medical History / Comment(s): Father had mitral valve replacement. He of malignant melanoma at the age of 68yrs. General Exam General appearance: alert, in no apparent distress Head exam: Present: atraumatic, normocephalic, normal inspection Eye exam: Present: normal appearance, PERRL, EOMI. Absent: scleral icterus, conjunctival injection, periorbital swelling ENT exam: Present: normal exam, mucous membranes moist Neck exam: Present: normal inspection. Absent: tenderness, meningismus, lymphadenopathy Respiratory exam: Present: normal lung sounds bilaterally. Absent: respiratory distress, wheezes, rales, rhonchi, stridor Cardiovascular Exam: Present: regular rate, normal rhythm, normal heart sounds. Absent: systolic murmur, diastolic murmur, rubs, gallop, clicks GI/Abdominal exam: Present: soft, normal bowel sounds. Absent: distended, tenderness, guarding, rebound, rigid Extremities exam: Present: normal inspection, full ROM, normal capillary refill. Absent: tenderness, pedal edema, joint swelling, calf tenderness Back exam: Present: normal inspection Neurological exam: Present: alert, oriented X3, CN II-XII intact Psychiatric exam: Present: normal affect, normal mood Skin exam: Present: warm, dry, intact, normal color. Absent: rash Course Vital Signs 06/23/21 06/24/21 23:48 02:12 Temperature 97.9 F Pulse Rate 84 71 Respiratory 18 16 Rate Blood Pressure 140/75 135/70 O2 Sat by Pulse 99 98 Oximetry - Reevaluation(s) Reevaluation #1: 06/24/21 00:11 Medical records reviewed Reevaluation #2: 06/24/21 02:29 no NAUSEA VOMITING PATIENT SYMPTOMS ARE IMPROVED Reevaluation #3: 06/24/21 02:29 Patient informed results and questions are answered Medical Decision Making - Medical Decision Making 65 female to the emergency department for evaluation nausea vomiting diarrhea abdominal pain. No acute cause her symptoms mild colitis gastritis. Patient can be discharged home, does have same symptoms - Lab Data Result diagrams: 06/24/21 00:23 06/24/21 00:23 Lab Results 06/24/21 06/24/21 06/24/21 Range/Units 00:23 00:23 00:23 WBC 11.2 H (3.8-10.6) k/uL RBC 5.46 H (3.80-5.40) m/uL Hgb 17.1 H (11.4-16.0) gm/dL Hct 53.6 H (34.0-46.0) % MCV 98.2 (80.0-100.0) fL MCH 31.2 (25.0-35.0) pg MCHC 31.8 (31.0-37.0) g/dL RDW 13.1 (11.5-15.5) % Plt Count 213 (150-450) k/uL MPV 8.0 Neutrophils % 92 % Lymphocytes % 4 % Monocytes % 2 % Eosinophils % 0 % Basophils % 0 % Neutrophils # 10.3 H (1.3-7.7) k/uL Lymphocytes # 0.5 L (1.0-4.8) k/uL Monocytes # 0.3 (0-1.0) k/uL Eosinophils # 0.1 (0-0.7) k/uL Basophils # 0.0 (0-0.2) k/uL Sodium 139 (137-145) mmol/L Potassium 4.1 (3.5-5.1) mmol/L Chloride 105 (98-107) mmol/L Carbon Dioxide 21 L (22-30) mmol/L Anion Gap 13 mmol/L BUN 19 H (7-17) mg/dL Creatinine 0.75 (0.52-1.04) mg/dL Est GFR (CKD-EPI)AfAm >90 (>60 ml/min/1.73 sqM) Est GFR (CKD-EPI)NonAf 84 (>60 ml/min/1.73 sqM) Glucose 148 H (74-99) mg/dL Plasma Lactic Acid Basim 2.4 H* (0.7-2.0) mmol/L Calcium 9.6 (8.4-10.2) mg/dL Total Bilirubin 0.9 (0.2-1.3) mg/dL AST 36 (14-36) U/L ALT 42 H (4-34) U/L Alkaline Phosphatase 135 H (38-126) U/L Total Protein 7.8 (6.3-8.2) g/dL Albumin 4.7 (3.5-5.0) g/dL Amylase 103 (30-110) U/L Lipase 290 (23-300) U/L - EKG Data -: EKG Interpreted by Me (EKG sinus rhythm 80 LA 139 QRS 101 QTC 433) - Radiology Data Radiology results: report reviewed (CT chest 7 pelvis negative for acute disease), image reviewed Disposition Clinical Impression: Abdominal pain, Gastroenteritis Disposition: HOME SELF-CARE Condition: Good Instructions (If sedation given, give patient instructions): Gastroenteritis (ED) Is patient prescribed a controlled substance at d/c from ED?: No Referrals: Nico Brady DO [Primary Care Provider] - 1-2 days
[2021-06-24 00:38] LABS: ALT 42 U/L (4-34); AST 36 U/L (14-36); African American GFR (CKD) >90 (>60 ml/min/1.73 sqM); Albumin 4.7 g/dL (3.5-5.0); Alkaline Phosphatase 135 U/L (38-126); Amylase 103 U/L (30-110); Anion Gap 13 mmol/L; Blood Urea Nitrogen 19 mg/dL (7-17); Calcium 9.6 mg/dL (8.4-10.2); Carbon Dioxide 21 mmol/L (22-30); Chloride 105 mmol/L (98-107); Glucose 148 mg/dL (74-99); Lipase 290 U/L (23-300); Non-African American GFR(CKD) 84 (>60 ml/min/1.73 sqM); Potassium 4.1 mmol/L (3.5-5.1); Sodium 139 mmol/L (137-145); Total Bilirubin 0.9 mg/dL (0.2-1.3); Total Protein 7.8 g/dL (6.3-8.2)
[2021-06-24 00:52] LABS: Basophils % (A) 0 %; Eosinophils # (A) 0.1 k/uL (0-0.7); Eosinophils % (A) 0 %; HCT 53.6 % (34.0-46.0); HGB 17.1 gm/dL (11.4-16.0); Lymphocytes # (A) 0.5 k/uL (1.0-4.8); Lymphocytes % (A) 4 %; MCH 31.2 pg (25.0-35.0); MCHC 31.8 g/dL (31.0-37.0); MCV 98.2 fL (80.0-100.0); Monocytes # (A) 0.3 k/uL (0-1.0); Monocytes % (A) 2 %; Neutrophils # (A) 10.3 k/uL (1.3-7.7); Neutrophils % (A) 92 %; Platelet Count 213 k/uL (150-450); RBC 5.46 m/uL (3.80-5.40); RDW 13.1 % (11.5-15.5); WBC 11.2 k/uL (3.8-10.6)
--- NOTE | 2021-06-24 02:10 | CT ---
EXAMINATION TYPE: CT abdomen pelvis w con DATE OF EXAM: 06/24/2021 COMPARISON: None HISTORY: abd pain with n&v CT DLP: 995.8 mGycm Automated exposure control for dose reduction was used. CONTRAST: Performed with IV Contrast, patient injected with 100 mL of Isovue 370. Images obtained from the diaphragm to the floor the pelvis with IV contrast. Lung bases are clear. There is no pleural effusion. Heart size is fairly normal. There is no pericard ial effusion. Liver and spleen are intact. There is no pancreatic mass. Stomach is intact. There are clips from cholecystectomy. The bile ducts are not dilated. There is no adrenal mass. Kidneys show satisfactory contrast opacification. There is no hydronephrosi s. There is some mild cortical thinning of the right kidney that could be scarring or chronic pyelone phritis. Ureters are not dilated. There is no retroperitoneal adenopathy. Bladder distends smoothly. There is no internal hernia. There is no free fluid in the pelvis. No pelvic mass. There is hysterect lisa. Appendix not seen. No sign of thickened appendix. Terminal ileum appears normal. The lumbar vertebrae have normal spacing and alignment. Posterior elements are intact. There is no co mpression fracture. Bony pelvis is intact. The hip joints are intact. There is no hip dysplasia. There is no mesenteric edema. There is no ascites or free air. There is no bowel obstruction. There i s suggestion of a few small bowel loops in the upper abdomen with mild wall thickening. IMPRESSION: Appendix not seen. No sign of thickened appendix. There is some minimal wall thickening proximal jeju num that could be mild gastroenteritis.
[2021-06-24 02:13] VITALS: BP 135/70; PULSE 71; RESP 16
--- NOTE | 2021-06-24 02:13 | CT ---
EXAMINATION TYPE: CT angio chest DATE OF EXAM: 06/24/2021 COMPARISON: None HISTORY: abd pain with n&v CT DLP: 995.8 mGycm Automated exposure control for dose reduction was used. CONTRAST: Performed with IV Contrast, patient injected with 100 mL of Isovue 370. There are Three-D postprocessed images. Images obtained from the thoracic inlet to the diaphragm with out IV contrast. There is no mediastinal adenopathy. Thoracic aorta is intact. There is no aneurysm or dissection. Rig ht size is normal. There is no pericardial effusion. There are no hilar masses. There is no pleural e ffusion. There is normal contrast opacification of the pulmonary arteries. There are no filling defects. There is some mild increased interstitial density in the anterior right middle lobe. No suspicious pu lmonary mass. IMPRESSION: No evidence of pulmonary embolism. Minimal pulmonary interstitial density in the right middle lobe co uld relate to some scarring. No suspicious pulmonary mass.
[2021-06-24] MEDS ORDERED: ACET/COD 300 MG/30 MG STARTER PACK 6 TAB BTL PO STA (02:30)
[2021-06-24] MEDS ORDERED: ONDANSETRON 4 MG ODT STARTER PACK 2 TAB BTL PO STA (02:30)
== END 2021-06-24 02:55 | disposition home or self-care (01) ==
LOC: EC 23:45
DX: K52.9 Noninfective gastroenteritis and colitis, unspecified (principal); E78.5 Hyperlipidemia, unspecified; M19.90 Unspecified osteoarthritis, unspecified site; Z79.899 Other long term (current) drug therapy; Z88.0 Allergy status to penicillin
CPT/HCPCS: 36415; 93005; 80053; 82150; 83605; 83690; 85025; 71275; 74177; 99284; 96374; 96375; 96361; J2270; J2405; S0119; Q9967

== ENCOUNTER → 2021-07-01 | Outpatient (CLI) | payer BC ==
--- NOTE | 2021-07-03 10:21 | MM ---
Reason for exam: screening (asymptomatic). Last mammogram was performed 1 year and 1 month ago. History: Patient is postmenopausal. Took estrogen beginning at age 53. Took progesterone beginning at age 53. Physical Findings: A clinical breast exam by your physician is recommended on an annual basis and results should be correlated with mammographic findings. MG 3D Screening Mammo W/Cad Bilateral CC and MLO view(s) were taken. Prior study comparison: June 11, 2020, bilateral MG 3d screening mammo w/cad. February 24, 2019, bilateral MG 3d screening mammo w/cad. The breast tissue is heterogeneously dense. This may lower the sensitivity of mammography. No significant changes when compared with prior studies. ASSESSMENT: Benign, BI-RAD 2 RECOMMENDATION: Routine screening mammogram of both breasts in 1 year.
== END | disposition home or self-care (01) ==
LOC: RADMAMWWP 07:20
PROVIDERS: ATTEND Family Medicine
DX: Z12.31 Encounter for screening mammogram for malignant neoplasm of breast (principal); Z78.0 Asymptomatic menopausal state
CPT/HCPCS: 77063; 77067

== ENCOUNTER → 2021-12-12 | Outpatient (CLI) | payer BC ==
--- NOTE | 2021-12-12 09:23 | XR ---
EXAMINATION TYPE: XR Hip Complete LT DATE OF EXAM: 12/12/2021 9:00 AM INDICATION: Patient age:Female; 65 years old; Reason for study: [id number]; [facility]. COMPARISON: None. TECHNIQUE: The left hip was examined in the frontal and lateral projections FINDINGS: No evidence for acute process, joint dislocation or significant soft tissue swelling. Surgi viola clip projects over the left iliac bone. IMPRESSION: 1. No acute process. 2. No significant osteoarthrosis.
== END | disposition home or self-care (01) ==
LOC: RADXRMAIN 08:45
PROVIDERS: ATTEND Family Medicine
DX: M25.552 Pain in left hip (principal)
CPT/HCPCS: 73502

== ENCOUNTER → 2022-07-02 | Outpatient (CLI) | payer BC ==
--- NOTE | 2022-07-02 08:28 | MM ---
Reason for Exam: Screening (asymptomatic). Last screening mammogram was performed 12 month(s) ago. Patient History: Menarche at age 12. First Full-Term at age 18. Left ovary removed at age 50. Right ovary removed at age 50. Hysterectomy at age 25. Postmenopausal. Patient has history of breast feeding. Estrogen, starting at age 53. Progesterone, starting at age 53. Risk Values: Jacy 5 year model risk: 1.2%. NCI Lifetime model risk: 4.4%. Prior Study Comparison: 01/13/2016 Bilateral Screening Mammogram, [facility]. 01/21/2017 Bilateral Screening Mammogram, [facility]. 01/26/2018 Bilateral Screening Mammogram, [facility]. 02/24/2019 Bilateral Screening Mammogram, [facility]. 06/11/2020 Bilateral Screening Mammogram, [facility]. 07/01/2021 Bilateral Screening Mammogram, [facility]. Tissue Density: The breast tissue is heterogeneously dense. This may lower the sensitivity of mammography. Findings: Analyzed By CAD. There is no suspicious group of microcalcifications or new suspicious mass in either breast. Overall Assessment: Negative, BI-RAD 1 Management: Screening Mammogram of both breasts in 1 year. A clinical breast exam by your physician is recommended on an annual basis and results should be correlated with mammographic findings. [facility] will attempt to contact patient to return for supplemental views and ultrasound if indicated. Electronically signed and approved by: Mahin Blankenship DO
== END | disposition home or self-care (01) ==
LOC: RADMAMWWP 07:40
PROVIDERS: ATTEND Family Medicine
DX: Z12.31 Encounter for screening mammogram for malignant neoplasm of breast (principal); Z78.0 Asymptomatic menopausal state
CPT/HCPCS: 77063; 77067

== ENCOUNTER → 2023-08-04 | Outpatient (CLI) | payer BC ==
--- NOTE | 2023-08-05 19:08 | MM ---
Reason for Exam: Screening (asymptomatic). Last mammogram was performed 1 year(s) and 1 month(s) ago. Patient History: Menarche at age 12. First Full-Term at age 18. Left ovary removed at age 50. Right ovary removed at age 50. Hysterectomy at age 25. Postmenopausal. Patient has history of breast feeding. Estrogen, starting at age 53. Progesterone, starting at age 53. Risk Values: Jacy 5 year model risk: 1.2%. NCI Lifetime model risk: 4.2%. Prior Study Comparison: 06/11/2020 Bilateral Screening Mammogram, [facility]. 07/01/2021 Bilateral Screening Mammogram, [facility]. 07/02/2022 Bilateral MG 3D screening mammo w/cad, [facility]. Tissue Density: The breasts are heterogeneously dense, which may obscure small masses. Findings: Analyzed By CAD. There is no suspicious group of microcalcifications or new suspicious mass in either breast. Overall Assessment: Negative, BI-RAD 1 Management: Screening Mammogram of both breasts in 1 year. . Patient should continue monthly self-breast exams. A clinical breast exam by your physician is recommended on an annual basis. This exam should not preclude additional follow-up of suspicious palpable abnormalities. Note on Jacy scores and lifetime risk: 1. A Jacy score greater than 3% is considered moderate risk. If this is the case, consider specialist referral to assess eligibility for a risk reducing agent. 2. If overall lifetime risk for the development of breast cancer is 20% or higher, the patient may qualify for future screening with alternating mammogram and breast MRI. Electronically signed and approved by: Caleb Robert M.D. Radiologist
== END | disposition home or self-care (01) ==
LOC: RADMAMWWP 08:27
PROVIDERS: ATTEND Family Medicine
DX: Z12.31 Encounter for screening mammogram for malignant neoplasm of breast (principal); Z78.0 Asymptomatic menopausal state
CPT/HCPCS: 77063; 77067

== ENCOUNTER → 2024-01-03 | Outpatient (CLI) | payer BC ==
[2024-01-03 15:49] LABS: African American GFR (CKD) 72 (>60 ml/min/1.73 sqM); Blood Urea Nitrogen 21 mg/dL (7-17); Non-African American GFR(CKD) 63 (>60 ml/min/1.73 sqM)
--- NOTE | 2024-01-18 10:23 | CT ---
EXAMINATION TYPE: CT urogram wo/w con DATE OF EXAM: 01/03/2024 COMPARISON: 322 INDICATION: Frequent UTIs DLP: 2858 mGycm, Automated exposure control for dose reduction was used. CONTRAST: 100 mL of Isovue 370. Study performed without Oral Contrast TECHNIQUE: Axial images were obtained from above the diaphragm to the pubic rami in the axial plane a t 5 mm thick sections. Reconstructed images are reviewed on the computer in the coronal plane. FINDINGS: Limited CT sections are obtained the lung bases. The lung bases are clear. CT ABDOMEN: Liver: Normal Spleen: Normal Pancreas: Normal Adrenal glands: The adrenal glands are normal. Gallbladder: Surgically absent Kidneys: No masses are evident. No hydronephrosis is present. Tiny cortical renal cysts on the righ t kidney. No renal stones are identified. Following contrast there is normal excretion of contrast bilaterally. Cortex appears normal. Renal co llecting system is unremarkable. Ureters follow a normal caliber and course to the urinary bladder. D istal left ureter has limited contrast. Right ureter appears normal without filling defects. Aorta: Vascular calcification is within the aorta. Inferior vena cava: Normal. CT PELVIS: Loops of bowel within the abdomen and pelvis are normal. The study is without oral contrast limit ing bowel evaluation. Few diverticuli within the sigmoid colon. Appendix: Normal as visualized. Urinary bladder: Normal. Genitourinary structures: Uterus and ovaries are not identified Osseous structures: No suspicious lytic or sclerotic lesions. IMPRESSION: 1. No suspicious renal or ureteral changes. 2. Mild diverticulosis without acute diverticulitis. [facility], , 01/18/2024 10:21 AM
== END | disposition home or self-care (01) ==
LOC: RADCTMAIN 14:54
PROVIDERS: ATTEND Urology
DX: N39.9 Disorder of urinary system, unspecified
CPT/HCPCS: 36415; 74178; 74400; 82565; 84520

== ENCOUNTER → 2024-01-17 | Outpatient (CLI) | payer BC ==
--- NOTE | 2024-01-17 10:17 | MR ---
EXAMINATION TYPE: MR cervical spine wo con DATE OF EXAM: 01/17/2024 9:37 AM CLINICAL INDICATION: Female, 68 years old with history of M47.812, M48.02; PHH, Headaches, fall COMPARISON: 12/27/2023. TECHNIQUE: Multi planar, multi sequence imaging was performed utilizing: T1-weighted, T2-weighted, an d turbo inversion recovery imaging of the cervical spine. IV Contrast: cc (none if empty) FINDINGS: Alignment: The cervical vertebral bodies have preserved heights. Alignment is within normal limits gi ange patient positioning. Bones: Osteophytes and disc space narrowing most pronounced at the C3-C4 vertebral levels. Mild inver lee recovery signal the adjoining endplates of C3 and C4. Cord: The spinal cord is unremarkable with regards to their signal intensity and morphology. Discs: Intervertebral disc signal is maintained. C2-C3: No significant disc pathology. The spinal canal is patent. No neural foraminal stenosis. C3-C4: A disc osteophyte complex is present with mild spinal canal stenosis. Bilateral facet and unc overtebral joint arthropathy are present with mild left neural foraminal stenosis. The right neural f oramen is patent. C4-C5: No significant disc pathology. The spinal canal is patent. No neural foraminal stenosis. C5-C6: No significant disc pathology. The spinal canal is patent. No neural foraminal stenosis. C6-C7: No significant disc pathology. The spinal canal is patent. No neural foraminal stenosis. C7-T1: No significant disc pathology. The spinal canal is patent. No neural foraminal stenosis. Other: None. IMPRESSION: 1. No evidence for disc herniation or significant spinal canal stenosis. 2. Mild disc degeneration with associated osteoarthritic changes mild reactive edema at the level of C3-C4 adjoining endplates. Mild left neural foraminal stenosis at this level. [facility], , 01/17/2024 10:14 AM
== END | disposition home or self-care (01) ==
LOC: RADMRIMAIN 08:53
PROVIDERS: ATTEND Orthopaedic Surgery
DX: M47.812 Spondylosis without myelopathy or radiculopathy, cervical region (principal); M50.31 Other cervical disc degeneration, high cervical region; M48.02 Spinal stenosis, cervical region
CPT/HCPCS: 72141